=== PATIENT | female | born 1940 | race Caucasian/White ===

== ENCOUNTER → 2016-06-15 | Outpatient (CLI) | payer MEDICARE, OTHER ==
[~2016-06-15] VITALS: Ht 158.8 cm; Wt 91.4 kg
[~2016-06-15] MED LIST: ASPI-557 PO; ATOR20TA18 PO; CALC-652 PO; CLOP75TA PO; INDA1.2516 PO; LISI-126 PO; MULT1CAP47 PO; NITR0.4T28 SL; SOTA80TA PO
== END ==
LOC: RC 13:02
PROVIDERS: ATTEND Internal Medicine
DX: J44.9 Chronic obstructive pulmonary disease, unspecified (principal); R94.2 Abnormal results of pulmonary function studies
CPT/HCPCS: 94010; 94060; 94726